=== PATIENT | female | born 1960 | race African-American/Black ===

== ENCOUNTER 2019-03-03 22:38 | Emergency (ER) | payer OTHER ==
[2019-03-03 22:52] VITALS: BMI 19.1
--- NOTE | 2019-03-04 00:08 | PDOC ---
History of Present Illness - General Chief Complaint: Syncope/Near Syncope Stated Complaint: ABD PAIN/VOMITING Time Seen by Provider: 03/03/19 23:51 History Source: Patient Exam Limitations: No Limitations - History of Present Illness Initial Comments: 03/04/19 00:08 Rena Blair is a 59F with PMH cholecystectomy and laryngeal surgery presenting with one day of nausea, vomiting, and syncopal episode. Patient was asymptomatic yesterday, today suddenly developed abdominal pain with nausea with multiple episodes of NBNB vomiting in the afternoon. Pain is epigastric and waxes and wanes, not tolerating PO today, denies eating bad food , no other sick contacts at home. Denies dizziness, sore throat, cough, fever, myalgia. Had one syncopal episode during this time, per family at bedside appeared ready to faint, son came to catch her and brought her to the ground. Did not have head injury, no tongue-biting or incontinence, no pro-dromal symptoms, remembers episode, was down for ~10 seconds and returned to baseline immediately. Denies chest pain, SOB, constipation, diarrhea, urinary symptoms, BREWSTER, weakness. Past History - Past Medical History Allergies/Adverse Reactions: Allergies Allergy/AdvReac Type Severity Reaction Status Date / Time shellfish derived Allergy Verified 03/03/19 22:47 CVA: No COPD: No CHF: No DVT: No - Surgical History Cholecystectomy: Yes - Psycho Social/Smoking Cessation Hx Smoking History: Never smoked Hx Alcohol Use: No Drug/Substance Use Hx: No Review of Systems - Review of Systems Able to Perform ROS?: Yes Constitutional: No: Chills, Fever HEENTM: No: Symptoms Reported Respiratory: No: Symptoms reported Cardiac (ROS): No: Symptoms Reported ABD/GI: Yes: Nausea, Poor Appetite, Poor Fluid Intake, Vomiting. No: Constipated, Diarrhea : No: Symptoms Reported Musculoskeletal: No: Symptoms Reported Integumentary: No: Symptoms Reported Neurological: No: Symptoms reported Endocrine: No: Symptoms Reported Hematologic/Lymphatic: No: Symptoms Reported All Other Systems: Reviewed and Negative *Physical Exam - Vital Signs Last Vital Signs Temp Pulse Resp BP Pulse Ox 97.8 F 80 20 98/68 98 03/03/19 22:47 03/03/19 22:47 03/03/19 22:47 03/03/19 22:47 03/03/19 22:47 - Physical Exam General Appearance: Yes: Nourished, Appropriately Dressed, Apparent Distress, Thin, Other (thin-appearing female lying supine in bed, burping a lot) HEENT: positive: EOMI, TONYA, Normal ENT Inspection, Normal Voice, Pharynx Normal. negative: Scleral Icterus (R), Scleral Icterus (L), Hearing Decreased Neck: positive: Trachea midline, Supple. negative: Tender, Decreased range of motion, Lymphadenopathy (R), Lymphadenopathy (L) Respiratory/Chest: positive: Lungs Clear, Normal Breath Sounds, Respiratory Distress. negative: Chest Tender, Accessory Muscle Use, Crackles, Rales, Rhonchi, Stridor, Wheezing Cardiovascular: positive: Regular Rhythm, Regular Rate Gastrointestinal/Abdominal: positive: Normal Bowel Sounds, Tender (epigastric, negative Lance sign), Flat, Soft Musculoskeletal: positive: Normal Inspection. negative: CVA Tenderness Extremity: positive: Normal Capillary Refill, Normal Inspection, Normal Range of Motion, Pelvis Stable. negative: Tender Integumentary: positive: Normal Color, Dry, Warm. negative: Jaundice Neurologic: positive: Fully Oriented, Alert, Normal Mood/Affect, Normal Response ED Treatment Course - LABORATORY CBC & Chemistry Diagram: 03/04/19 01:00 03/04/19 01:00 Medical Decision Making - Medical Decision Making 03/04/19 00:08 Rena Blair is a 59F with H cholecystectomy and laryngeal surgery presenting with one day of nausea, vomiting, and syncopal episode. Presentation concerning for pancreatitis vs. hepatitis vs. gastritis/ gastroenteritis. S/p cholecystectomy, biliary pathology less likely. Syncopal episode highly consistent with vagal syncope given multiple emesis episodes today, no chest pain or palpitations, no prior cardiac history. CBC CMP Lipase ECG Mag/Phos UA/UC CXR Giving Maalox, Pepcid, Zofran, 1L IV NS for epigastric pain. Labs unremarkable for pancreatitis or infection. ECG shows NSR with nonspecific P wave inversions in V1-V3, no ischemic changes or TWI, HR 75, QTc 444. Signed out to Dr. Loredo. Plan to evaluate labs and imaging, likely dispo home. Discharge - Discharge Information Problems reviewed: Yes Clinical Impression/Diagnosis: Epigastric pain Condition: Stable - Follow up/Referral - Patient Discharge Instructions Patient Printed Discharge Instructions: DI for Vomiting -- Adult Additional Instructions: Today you were evaluated for nausea and vomiting with one episode of fainting. Your blood labs are unremarkable. Your chest x-ray shows: Your EKG shows: Your nausea and vomiting is likely due to a stomach virus. At home, please remember to stay hydrated and eat as much bland foods as you can tolerate, including soups and sports drinks. Your nausea and vomiting should resolve on its own. Please follow-up with your primary doctor in the next 3 days for further care. If you experience uncontrollable nausea/vomiting, vomit blood, have chest pain or dizziness, faint again, or have any other new or concerning symptoms, please return to the emergency room. - Post Discharge Activity
[2019-03-04] MEDS ORDERED: SODIUM CHLORIDE 0.9% 500 ML INFUS.BAG IV ONE (00:34)
[2019-03-04] MEDS ORDERED: FAMOTIDINE 20 MG/50 ML IVPB 20 MG/50 ML MG IVPB ONE ×2 (00:36→00:46)
[2019-03-04] MEDS ORDERED: ONDANSETRON 4 MG/2 ML VIAL IVPUSH ONE (00:36)
[2019-03-04] MEDS ORDERED: MAG HYDROX/AL HYDROX/SIMETH -MYLANTA- ORAL SUSPENSION PO ONE (00:44)
[2019-03-04] MEDS ORDERED: ONDANSETRON 4 MG/2 ML VIAL ONE (00:45)
[2019-03-04 01:36] LABS: BASO % 0.8 % (0-2.0); EOS % 0.2 % (0-4.5); HEMATOCRIT 39.4 % (32.4-45.2); HEMOGLOBIN 13.1 GM/dL (10.7-15.3); LYMPH % 17.8 % (8-40); MCH 30.5 pg (25.7-33.7); MCHC 33.3 g/dl (32.0-36.0); MEAN CELL VOLUME 91.7 fl (80-96); MEAN PLT VOLUME 9.7 fl (7.5-11.1); MONO % 5.6 % (3.8-10.2); NEUT % 75.6 % (42.8-82.8); PLATELET COUNT 190 K/MM3 (134-434); RDW 13.8 % (11.6-15.6); WHITE BLOOD COUNT 4.5 K/mm3 (4.0-10.0)
--- NOTE | 2019-03-04 01:49 | PDOC ---
Documentation entered by Bebe Prince SCRIBE, acting as scribe for Honey Mckeon MD. Honey Mckeon MD: This documentation has been prepared by the makaylaibdenver, Bebe Prince SCRIBE, under my direction and personally reviewed by me in its entirety. I confirm that the documentation accurately reflects all work, treatment, procedures, and medical decision making performed by me. Attending Attestation - Resident Resident Name: AnatanaRamírez - ED Attending Attestation I have performed the following: I have examined & evaluated the patient, The case was reviewed & discussed with the resident, I agree w/resident's findings & plan, Exceptions are as noted - HPI HPI: 03/04/19 00:57 The patient is a 59-year-old female with a past medical history significant for Cholecystectomy who presents to the emergency department with nausea, vomiting, and s/p a syncopal episode. The patient reports a 1-day history of nausea with 3 episodes of vomiting. The patient reports around 5:00 pm yesterday, she had a syncopal episode, the patients son witnessed the event, who reports the patient was unconscious for about 10 seconds before regaining consciousness. Denies sick contact. Denies chest pain or shortness of breath. - Physicial Exam PE: 03/04/19 01:45 59-year-old female had several episodes of nausea and vomiting and then felt dizzy and states she passed out but was caught by family member who seated her , there was no head trauma. she quickly returned to baseline and was alert and oriented x3 03/04/19 01:47 Slender 59-year-old female complaining of nausea vomiting Head normocephalic atraumatic Neck is supple Lungs are clear to auscultation bilaterally CVS regular rate and rhythm S1-S2 Abdomen flat, no guarding No flank pain Skin warm and dry Neuro alert and oriented x3 - Medical Decision Making 03/04/19 01:48 59-year-old female with epigastric pain, nausea and vomiting Plan CBC, chemistries, lipase, IV fluids, antiemetics and reassess
[2019-03-04 02:10] LABS: BILIRUBIN,TOTAL 0.8 mg/dL (0.2-1); BLOOD UREA NITROGEN 9.6 mg/dL (7-18); CALCIUM 9.5 mg/dL (8.5-10.1); CREATININE 0.9 mg/dL (0.55-1.3); PHOSPHOROUS 3.6 mg/dL (2.5-4.9); POTASSIUM 4.7 mmol/L (3.5-5.1); TOT PROT 7.8 g/dl (6.4-8.2)
--- NOTE | 2019-03-04 02:36 | PDOC ---
*Physical Exam - Vital Signs Last Vital Signs Temp Pulse Resp BP Pulse Ox 97.8 F 80 20 98/68 98 03/03/19 22:47 03/03/19 22:47 03/03/19 22:47 03/03/19 22:47 03/03/19 22:47 ED Treatment Course - LABORATORY CBC & Chemistry Diagram: 03/04/19 01:00 03/04/19 01:00 - ADDITIONAL ORDERS Additional order review: Laboratory Results 03/04/19 03/04/19 01:00 01:00 Sodium 136 Potassium 4.7 Chloride 103 Carbon Dioxide 24 Anion Gap 9 BUN 9.6 Creatinine 0.9 Est GFR (CKD-EPI)AfAm 81.69 Est GFR (CKD-EPI)NonAf 70.48 Random Glucose 113 H Calcium 9.5 Phosphorus 3.6 Magnesium 2.0 Total Bilirubin 0.8 AST 45 H ALT 30 Alkaline Phosphatase 71 Total Protein 7.8 Albumin 4.0 Lipase 154 03/04/19 01:00 RBC 4.30 MCV 91.7 MCHC 33.3 RDW 13.8 MPV 9.7 Neutrophils % 75.6 Lymphocytes % 17.8 Monocytes % 5.6 Eosinophils % 0.2 Basophils % 0.8 - Medications Given in the ED: ED Medications Discontinued Medications Generic Name Dose Route Start Last Admin Trade Name Freq PRN Reason Stop Dose Admin Al Hydroxide/Mg Hydroxide 30 ml 03/04/19 00:44 03/04/19 01:23 Mylanta Suspension - PO 03/04/19 00:45 Not Given ONCE ONE Famotidine/Sodium Chloride 20 mg in 50 mls @ 100 mls/hr 03/04/19 00:36 01:23 Pepcid 20 Mg Premixed Ivpb - IVPB 03/04/19 01:05 100 mls/hr ONCE ONE Administration Ondansetron HCl 4 mg 03/04/19 00:36 03/04/19 01:23 Zofran Injection IVPUSH 03/04/19 00:37 4 mg NOW ONE Administration Sodium Chloride 1,000 ml 03/04/19 00:34 03/04/19 01:23 Normal Saline - IV 03/04/19 00:35 1,000 ml ONCE ONE Administration Medical Decision Making - Medical Decision Making 03/04/19 02:34 signed out from noon team - reassess - CXR? - likely dc home 03/04/19 02:43 still some pain, no nausea - tylenol - reassess 03/04/19 03:30 Pt reassessed - tylenol did not help the pain, feeling nauseated again w/ emesis bag at face states she has a h/o gastroparesis - reglan - CT A/P 03/04/19 05:30 CXR per ED team shows no acute pathology CT A/P IOC IMPRESSION Small pericardial effusion. Status post cholecystectomy. Migrated cholecystectomy clips in the lower abdomen and pelvis. Left kidney 6.5 cm cystic process. Mild wall thickening of the descending colon most likely due to mild diverticulitis or infectious colitis. 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 If clinically indicated a follow-up outpatient evaluation may be needed - labs reassuring - PO challenge - if po tolerant will dc home on abx 03/04/19 05:41 pt not nauseated, did not vomit after cranberry juice PO metronidazole and ciprofloxacin DC home w/ close PCP f/u, abx, and return precautions Discharge - Discharge Information Problems reviewed: Yes Clinical Impression/Diagnosis: Epigastric pain, Diverticulitis Condition: Stable Disposition: HOME - Admission No - Additional Discharge Information Prescriptions: Ciprofloxacin [Cipro -] 500 mg PO BID #20 tablet Metronidazole 500 mg PO TID #30 tablet - Follow up/Referral Referrals: Cecil Haile MD [Staff Physician] - - Patient Discharge Instructions Patient Printed Discharge Instructions: DI for Diverticulitis Additional Instructions: You were found to have a mild diverticulitis on CT imaging. A copy of the report was provided to you. You were incidentally found to have a mild pericardial effusion which means a small amount of fluid was found around your heart. FOLLOW UP WITH CARDIOLOGY IN THE NEXT 7 DAYS REGARDING THIS FINDING. We are referring you to Dr. Haile, you may call the number and schedule an appointment. The first dose of antibiotics was given in the Emergency Department. We have sent additional antibiotics to your pharmacy ([facility], [address] [place] [address]), please pick them up and take as prescribed. Finish the entire course and make sure to note the dosing intervals as they are different between the two medications. Metronidazole is three times a day. Ciprofloxacin is two times a day. Follow up with your Primary Care Doctor in the next 2 days (Monday03/05/19) DIET: CLEARS LIQUIDS ONLY PLEASE READ THE ATTACHED INFORMATION ON DIVERTICULITIS. IMMEDIATELY RETURN TO THE NEAREST EMERGENCY DEPARTMENT IF YOU EXPERIENCE: - Worsening pain - Vomiting - High fevers - chest pain, shortness of breath, fainting - ANYTHING THAT CONCERNS YOU - Post Discharge Activity Work/Back to School Note: Back to Work
[2019-03-04] MEDS ORDERED: ACETAMINOPHEN 1000 MG/100 ML VIAL (NON FORMULARY) IVPB ONE (02:41)
[2019-03-04] MEDS ORDERED: PANTOPRAZOLE SODIUM 40 MG VIAL IVPUSH ONE (02:41)
[2019-03-04] MEDS ORDERED: PANTOPRAZOLE SODIUM 40 MG VIAL ONE (02:45)
[2019-03-04] MEDS ORDERED: METOCLOPRAMIDE HCL INJECTION 10 MG/2 ML VIAL IVPUSH ONE (03:42)
[2019-03-04] MEDS ORDERED: METOCLOPRAMIDE HCL INJECTION 10 MG/2 ML VIAL ONE (03:56)
[2019-03-04] MEDS ORDERED: metroNIDAZOLE 250 MG TABLET PO ONE (05:40)
[2019-03-04] MEDS ORDERED: CIPROFLOXACIN 500 MG TABLET (RESTRICTED TO ID) PO ONE (05:40)
[2019-03-04] MEDS ORDERED: metroNIDAZOLE 250 MG TABLET ONE (05:46)
[2019-03-04 06:13] VITALS: BP 109/80; PULSE 73; TEMP 98
--- NOTE | 2019-03-05 11:26 | EKG ---
Test Reason : Blood Pressure : / mmHG Vent. Rate : 075 BPM Atrial Rate : 075 BPM P-R Int : 162 ms QRS Dur : 088 ms QT Int : 398 ms P-R-T Axes : 077 051 060 degrees QTc Int : 444 ms NORMAL SINUS RHYTHM POSSIBLE LEFT ATRIAL ENLARGEMENT NONSPECIFIC ST AND T WAVE ABNORMALITY ABNORMAL ECG WHEN COMPARED WITH ECG OF 29-AUG-2009 10:23, NON-SPECIFIC CHANGE IN ST SEGMENT IN ANTERIOR LEADS Confirmed by MD Cristopher, Mina ([id number]) on 03/05/2019 11:26:08 AM Referred By: Confirmed By:Mina Nicholas MD
== END 2019-03-04 06:21 | disposition home or self-care (01) ==
LOC: JER 22:38
PROC: 3E033NZ Introduction of Analgesics, Hypnotics, Sedatives into Peripheral Vein, Percutaneous Approach (ICD-10-PCS; principal; 2019-03-03)
PROC: 3E033NZ Introduction of Analgesics, Hypnotics, Sedatives into Peripheral Vein, Percutaneous Approach (ICD-10-PCS; 2019-03-03)
PROC: 3E0333Z Introduction of Anti-inflammatory into Peripheral Vein, Percutaneous Approach (ICD-10-PCS; 2019-03-03)
PROC: 3E033GC Introduction of Other Therapeutic Substance into Peripheral Vein, Percutaneous Approach (ICD-10-PCS; 2019-03-03)
DX: N21.1 Calculus in urethra (principal)
CPT/HCPCS: 36415; 71045-TC-FY; 74177-TC; 80053; 83690; 83735; 84100; 85025; 93005; 93010; 99284-25; J0131